=== PATIENT | female | born 1965 | race Caucasian/White ===

== ENCOUNTER → 2016-10-27 | Day surgery (SDC) | payer SELFPAY ==
[2016-10-27] VITALS (9 sets, daily range): BP systolic 102–108; BP diastolic 64–69
[~2016-10-27] VITALS: Ht 157.5 cm; Wt 47.6 kg
[~2016-10-27] MED LIST: FOLIC ACID1 MG ORAL; LR 1000ml ONE; Lidocaine 1% MPF 10mg/ml 5ml ONE; METHOTREXATE2.5 MG PO; OMEPRAZOLE20 M2 ORAL; OYSTER SHELL C500 MG PO; PREDNISONE5 M3 PO; PYRIDOSTIGMINE60 MG ORAL; Propofol 10mg/ml 20ml IV ONE; VITAMIN D400 INTLU ORAL
--- NOTE | 2016-10-27 08:36 | Pre-Procedure Note/Attestation ---
Pre-Procedure Note/Attestation Complete Prior to Procedure Planned Procedure: not applicable Procedure Narrative: colonoscopy Indications for Procedure Pre-Operative Diagnosis: screening colon Attestation I attest that I discussed the nature of the procedure; its benefits; risks and complications; and alternatives (and the risks and benefits of such alternatives ), prior to the procedure, with the patient (or the patient's legal associate sales representative). I attest that, if there was a reasonable possibility of needing a blood transfusion, the patient (or the patient's legal associate sales representative) was given the [facility] standardized written summary, pursuant to the Larry Jacquelyn Blood Safety Act ([place] Health and Safety Code # 1645, as amended). I attest that I re-evaluated the patient just prior to the surgery and that there has been no change in the patient's H&P, except as documented below: MIKA GONZALEZ Oct 27, 2016 08:36
--- NOTE | 2016-10-27 08:37 | Short Stay Surgery H&P ---
History of Present Illness History of Present Illness Chief Complaint screening HPI Urmila Marte is a 51 year old female who was admitted on for Colon Screening Patient History Allergies: Coded Allergies: No Known Allergies (Unverified , 10/27/16) PAST MEDICAL HISTORY: Past Surgeries: Social History: Medication History Scheduled Calcium Carbonate (Oyster Shell Calcium), 500 MG PO BID, (Reported) Folic Acid* (Folic Acid*), 1 MG ORAL DAILY, (Reported) Methotrexate Sodium* (Methotrexate*), 2.5 MG PO ONCE A WEEK, (Reported) Omeprazole (Omeprazole), 20 MG ORAL DAILY, (Reported) Prednisone (Prednisone), 5 MG PO DA, (Reported) Pyridostigmine [place]* (Mestinon*), 60 MG ORAL THREE TIMES A DAY, (Reported) Vitamin D (Vitamin D3), 2,000 UNITS ORAL DAILY, (Reported) Review of Systems Cardiovascular: Reports: no symptoms Respiratory: Reports: no symptoms Skeletal: Reports: no symptoms Gastrointestinal: Reports: no symptoms Genitourinary: Reports: no symptoms Neurologic: Reports: no symptoms Endocrine: Reports: no symptoms Hematologic: Reports: no symptoms Physical Exam Vital Signs Last Vital Signs Date Time Temp Pulse Resp B/P Pulse Ox O2 Delivery O2 Flow Rate FiO2 10/27/16 07:26 97.5 65 20 104/66 100 Room Air Skin: normal HENT: normal Heart: normal Lungs: normal Abdomen: normal Extremities: normal Plan Plan of Care colonoscopy Final Diagnosis: Attestation Are the patient's medical conditions optimized for surgery? Attestation Response: yes MIKA GONZALEZ Oct 27, 2016 08:37
--- NOTE | 2016-10-27 09:03 | Anethesia Preoperative Eval ---
Anesthesia Pre-op PMH/ROS General Date of Evaluation: Oct 27, 2016 Time of Evaluation: 09:01 Anesthesiologist: froy ASA Score: ASA 1 Mallampati Score Class I : Soft palate, uvula, fauces, pillars visible Class II: Soft palate, uvula, fauces visible Class III: Soft palate, base of uvula visible Class IV: Only hard plate visible Mallampati Classification: Class II Surgeon: kanu Diagnosis: colonoscopy Surgical Procedure: colonoscopy Anesthesia History: none Family History: no anesthesia problems Allergies: Coded Allergies: No Known Allergies (Unverified , 10/27/16) Medications: see eMAR Past Medical History Cardiovascular: Denies: CAD, HTN, [place], arrhythmia, other, valve dz Pulmonary: Denies: COPD, ZAYNAB, asthma, other Gastrointestinal/Genitourinary: Reports: GERD Neurologic/Psychiatric: Denies: CVA, TIA, dementia, depression/anxiety, other Endocrine: Denies: DM, hypothyroidism, other, steroids Hematology/Immune: Denies: DVT, anemia, bleeding disorder, other Musculoskeletal/Integumentary: Denies: DDD, DJD, OA, RA, edema, other PSxH Narrative: none Anesthesia Pre-op Phys. Exam Physician Exam Last Vital Signs Date Time Temp Pulse Resp B/P Pulse Ox O2 Delivery O2 Flow Rate FiO2 10/27/16 07:26 97.5 65 20 104/66 100 Room Air Constitutional: NAD Neurologic: CN 2-12 intact Cardiovascular: RRR Respiratory: CTA Gastrointestinal: S/NT/ND Airway Exam Mallampati Classification 2 Mallampati Score: Class II MO: full ROM: full Dentures: no lower, no upper Anesthesia Pre-op A/P Studies Pre-op Studies: EKG - sr Risk Assessment & Plan Plan: mac Pre-Antibiotics Drug: none MARIELA MUNIZ [employer] TEAM LEADER Oct 27, 2016 09:03
--- NOTE | 2016-10-27 09:13 | Endoscopy Procedure Note ---
Endoscopy Procedure Note Indication for Procedure: screening Procedures Performed: colonoscopy Operative Findings/Diagnosis: 2 polyps Specimen: yes Pt Tolerated Procedure Well: Yes Estimated Blood Loss: none Anesthesiologist: ha Anesthesia: MAC Implant(s) used?: No 50 yrs or older w/o bx or poly: No 10yrs. F/U not recommended: Yes If not recommended, why?: Above average risk 10 yrs. F/U needed: Yes 18 years or older w/prev. colo: No MIKA GONZALEZ Oct 27, 2016 09:13
--- NOTE | 2016-10-27 09:26 | Immediate Post-Op Evaluation ---
Immediate Post-Op Evalulation Immediate Post-Op Evalulation Procedure: colonoscopy Date of Evaluation: Oct 27, 2016 Time of Evaluation: 09:26 IV Fluids: 300 Blood Pressure Systolic: 109 Blood Pressure Diastolic: 54 Pulse Rate: 74 Respiratory Rate: 14 Temperature (Fahrenheit): 98.4 Nausea: No Vomiting: No Complications none Patient Status: awake, patent Hydration Status: adequate Drug: none MARIELA MUNIZ CRNA Oct 27, 2016 09:26
--- NOTE | 2016-10-27 10:00 | 48 Hour Post Anesthesia Eval ---
Post Anesthesia Evaluation Procedure: colonoscopy Date of Evaluation: Oct 27, 2016 Time of Evaluation: 09:59 Blood Pressure Systolic: 135 0: 75 Pulse Rate: 65 O2 Sat by Pulse Oximetry: 99 Airway: patent Nausea: No Vomiting: No Hydration Status: adequate Mental Status/LOC: patient returned to baseline Post-Anesthesia Complications: none Follow-up care needed: N/A MARIELA MUNIZ CRNA Oct 27, 2016 10:00
--- NOTE | 2016-10-27 12:08 | Cardiology Report ---
APPROVED REPORT EKG Measurement Heart [id number] Sinus bradycardia Otherwise normal ECG
--- NOTE | 2016-10-27 18:38 | Procedure Note ---
SURGEON: Ochoa Christianson M.D. PROCEDURE: Colonoscopy with biopsy. ANESTHESIA: Per Laisha MARTIN. INSTRUMENT: Olympus flexible colonoscope. INDICATION: Screening colonoscopy. REASON FOR PROCEDURE: The procedure, risks, benefits, and possible consequences, including hemorrhage, aspiration, perforation and infection, and alternative treatments, were explained to the patient/legal guardian by Dr. Ochoa Christianson and the patient/legal guardian understood and accepted these risks. PROCEDURE: After informed consent was obtained and the patient was adequately sedated, first rectal exam was performed, which was normal. Then, the scope was advanced from the rectum into the cecum documented by appendiceal orifice, ileocecal valve, and upper quadrant palpation. Quality of prep was very good. The patient had one polyp in the proximal ascending colon, measured roughly about 5 mm removed with the cold snare polypectomy technique. There was a diminutive polyp in the transverse colon, also was removed with biopsy forceps technique. The rest of the examination was within normal limit. Retroflexion of rectum showed evidence of a small internal hemorrhoids. SUMMARY FINDINGS: 1. Two colonic polyps removed, see above for detail. 2. Internal hemorrhoids. RECOMMENDATIONS: 1. Follow biopsy results. 2. Repeat colonoscopy in 5 years. Ochoa Christianson M.D. DR: PEREZ JOB#: [id number] CC:
== END | disposition home or self-care (01) ==
LOC: GAS 06:45
DX: Z12.11 Encounter for screening for malignant neoplasm of colon (principal); D12.2 Benign neoplasm of ascending colon; D12.3 Benign neoplasm of transverse colon; K64.8 Other hemorrhoids; K21.9 Gastro-esophageal reflux disease without esophagitis; Z79.899 Other long term (current) drug therapy
CPT/HCPCS: 45380; 45385; 93005; J2704; J7120; 94003; 94150